=== PATIENT | male | born 1955 | race Caucasian/White ===

== ENCOUNTER 2019-05-13 10:07 | Day surgery (SDC) | payer BC ==
[~2019-05-13 10:07] MED LIST: Lactated Ringers 1,000 ML IV SCH
--- NOTE | 2019-05-13 10:46 | PCM.PREANE ---
Preanesthetic Assessment - Anesthesia/Transfusion/Family Hx Anesthesia History: Prior Anesthesia Without Reaction Family History of Anesthesia Reaction: No Transfusion History: No Prior Transfusion(s) Intubation History: Unknown - Review of Systems General: No Symptoms Pulmonary: No Symptoms Cardiovascular: No Symptoms Gastrointestinal: No Symptoms, Other (screening, in '07 was normal) Neurological: No Symptoms Other: Reports: None - Physical Assessment Vital Signs: Last Vital Signs Temp 36.6 C 05/13/19 10:39 Pulse 67 05/13/19 10:39 Resp 14 05/13/19 10:39 BP 116/75 05/13/19 10:39 Pulse Ox 99 05/13/19 10:39 Height: 5 ft 6 in Weight: 87.09 kg ASA Class: 2 Mental Status: Alert & Oriented x3 Airway Class: Mallampati = 2 Dentition: Reports: Normal Dentition, Partial (fixed, three front upper teeth) Thyro-Mental Finger Breadths: 3 Mouth Opening Finger Breadths: 2 ROM/Head Extension: Full Lungs: Clear to Auscultation, Normal Respiratory Effort Cardiovascular: Regular Rate, Regular Rhythm - Allergies Allergies/Adverse Reactions: Allergies Allergy/AdvReac Type Severity Reaction Status Date / Time No Known Allergies Allergy Verified 05/07/19 11:40 - Blood Blood Available: No - Anesthesia Plan Pre-Op Medication Ordered: None - Acknowledgements Anesthesia Type Planned: MAC Pt an Appropriate Candidate for the Planned Anesthesia: Yes Alternatives and Risks of Anesthesia Discussed w Pt/Guardian: Yes Pt/Guardian Understands and Agrees with Anesthesia Plan: Yes PreAnesthesia Questionnaire HEENT History: Reports: Cataract, Other (See Below) Other HEENT History: wears glassesw, has upper partial permanent denture Cardiovascular History: Reports: Arrhythmia, Hypertension, Other (See Below) Other Cardiovascular History: hx of Tachycardia- takes Metoprolol, hx of Rheumatic fever Gastrointestinal History: Reports: Diverticulosis Genitourinary History: Reports: BPH Musculoskeletal History: Reports: Fracture, Gout, Other (See Below) Other Musculoskeletal History: hx of Lymes disease- has chronic pain, hx of fx arm x2 Neurological History: Reports: Concussion Other Neuro History: headaches with elevated BP Psychiatric History: Reports: Anxiety, Other (See Below) Other Psychiatric History: insomnia Endocrine/Metabolic History: Reports: Diabetes, Type II (well controlled with metformin and weight loss), Other (See Below) Other Endocrine/Metabolic History: Hx lyme's disease in his 20's - Past Surgical History HEENT Surgical History: Reports: Tonsillectomy GI Surgical History: Reports: Colonoscopy (2006 - normal), Hernia, Inguinal, Other (See Below) Other GI Surgeries/Procedures: excision of anal fissure - SUBSTANCE USE Smoking Status *Q: Former Smoker Tobacco Use Within Last Twelve Months: No Recreational Drug Use History: No - HOME MEDS Home Medications: Home Meds Amitriptyline [Elavil] 50 mg PO BEDTIME 05/12/17 [History] Febuxostat [Uloric] 80 mg PO DAILY 05/12/17 [History] Metoprolol Succinate 25 mg PO BEDTIME 05/12/17 [History] Trandolapril 2 mg PO DAILY 05/12/17 [History] Triamterene/Hydrochlorothiazid [Triamterene-HCTZ 37.5-25 MG] 0.5 tab PO DAILY [History] L.acidoph,Paracasei, B.lactis [Probiotic] 1 cap PO DAILY 05/07/19 [History] Sildenafil Citrate 100 mg PO ASDIRECTED PRN 05/07/19 [History] metFORMIN HCl [Fortamet] 750 mg PO DAILY 05/07/19 [History] - CURRENT (IN HOUSE) MEDS Current Meds: Current Medications Lactated Ringer's (Ringers, Lactated) 1,000 mls @ 125 mls/hr IV ASDIRECTED LEANN Last Admin: 05/13/19 10:38 Dose: 125 mls/hr
[2019-05-13] MEDS ORDERED: Midazolam 1 MG/ML 2 ML SDV ONE (11:47)
[2019-05-13] MEDS ORDERED: Propofol 200 MG/20 ML SDV ONE (11:47)
[2019-05-13] MEDS ORDERED: Lidocaine 2% 5 ML SDV ONE (12:12)
--- NOTE | 2019-05-13 13:42 | PCM.OPNOTE ---
- General Post-Op/Procedure Note Date of Surgery/Procedure: 05/13/19 Operative Procedure(s): Colonoscopy Pre Op Diagnosis: Desire for colorectal cancer screening Post-Op Diagnosis: Melanosis coli Anesthesia Technique: MAC (ASA II) Primary Surgeon: Jh Laguna Condition: Good Free Text/Narrative:: DICTATION [id number] CPT CODE 01441
[2019-05-13] MEDS ORDERED: Lactated Ringers 1,000 ML IV SCH (13:45)
--- NOTE | 2019-05-13 13:51 | PCM.POSTAN ---
POST ANESTHESIA ASSESSMENT - MENTAL STATUS Mental Status: Alert, Oriented - VITAL SIGNS Vital Signs: Last Vital Signs Temp 36.6 C 05/13/19 10:39 Pulse 78 05/13/19 13:44 Resp 11 L 05/13/19 13:44 BP 141/78 H 05/13/19 13:44 Pulse Ox 97 05/13/19 13:44 - RESPIRATORY Respiratory Status: Respiratory Rate WNL, Airway Patent, O2 Saturation Stable - CARDIOVASCULAR CV Status: Pulse Rate WNL, Blood Pressure Stable - GASTROINTESTINAL GI Status: No Symptoms - PAIN Pain Score: 0 - POST OP HYDRATION Hydration Status: Adequate & Stable - OBSERVATIONS Free Text/Narrative:: No anesthesia problems
--- NOTE | 2019-05-13 14:04 | OR ---
SURGEON: Jh Laguna M.D. DATE OF PROCEDURE: 05/13/2019 OPERATION PERFORMED: Colonoscopy. PRIMARY SURGEON: Jh Laguna MD. ANESTHESIA: MAC. ASA CLASSIFICATION: II. PREOPERATIVE DIAGNOSIS: Desire for colorectal cancer screening. POSTOPERATIVE DIAGNOSIS: Melanosis coli. DESCRIPTION OF PROCEDURE: The patient was taken to the endoscopy room and positioned on the endoscopy table in the left lateral decubitus position. Time-out was called for appropriate identification of the patient and procedure. Monitored anesthesia care was provided. The colonoscope was inserted into the rectum and advanced with minimal difficulty to the cecum. The cecum was identified by internal landmarks and external pressure. The ileocecal valve and appendiceal orifice were visualized. The colonoscope was retroflexed to visualize the ascending colon from below, then straightened and slowly withdrawn. The cecum, ascending colon, hepatic flexure, transverse colon, splenic flexure, descending colon, sigmoid colon, and rectum were very well visualized. No tumors, polyps, diverticula, or angiodysplastic changes were noted anywhere in the lower gastrointestinal tract. The patient does have melanosis coli. Once the colonoscope was withdrawn to the rectum, it was retroflexed to visualize the anal orifice from above. Again, no tumors or polyps were seen and there were no acute hemorrhoidal changes. The colonoscope was then straightened, the rectum aspirated, and the colonoscope removed. The patient tolerated the procedure well and was taken to recovery room in stable condition. FRANCINE / ZAIN /[id number]
--- NOTE | 2019-05-13 14:11 | PCM48HPAN ---
Post Anesthesia Note - EVALUATION WITHIN 48HRS OF ANESTHETIC Vital Signs in Normal Range: Yes Patient Participated in Evaluation: Yes Respiratory Function Stable: Yes Airway Patent: Yes Cardiovascular Function Stable: Yes Hydration Status Stable: Yes Pain Control Satisfactory: Yes Nausea and Vomiting Control Satisfactory: Yes Mental Status Recovered: Yes Vital Signs: Last Vital Signs Temp 36.6 C 05/13/19 10:39 Pulse 78 05/13/19 13:44 Resp 11 L 05/13/19 13:44 BP 141/78 H 05/13/19 13:44 Pulse Ox 97 05/13/19 13:44 - COMMENTS/OBSERVATIONS Free Text/Narrative:: no anesthesia problems
== END 2019-05-13 14:21 | disposition home or self-care (01) ==
LOC: MW.SDS 10:07
PROVIDERS: ATTEND Surgery
DX: Z12.11 Encounter for screening for malignant neoplasm of colon (principal); K63.89 Other specified diseases of intestine; I10 Essential (primary) hypertension; G47.00 Insomnia, unspecified; M10.9 Gout, unspecified; N40.1 Benign prostatic hyperplasia with lower urinary tract symptoms; R35.1 Nocturia; R73.03 Prediabetes; Z87.891 Personal history of nicotine dependence; Z79.84 Long term (current) use of oral hypoglycemic drugs; Z79.899 Other long term (current) drug therapy
CPT/HCPCS: 45378; J2001; J2250; J2704; J7120